=== PATIENT | female | born 1935 | race Caucasian/White ===

== ENCOUNTER → 2018-11-28 | Outpatient (CLI) | payer MEDICARE ==
[~2018-11-28] MED LIST: ASPI325; ASPI81CH PO; ATEN25; FLUSAL5005; Hydrochlorothia25 MG PO; LEVSOD100; LISI20 PO; METF500C PO; METO100ER PO; Prilosec Otc20 MG; RANI150
== END | disposition home or self-care (01) ==
LOC: LAB EV 12:36 → LAB SHORT 12:36
DX: N39.0 Urinary tract infection, site not specified (principal)
CPT/HCPCS: 87077; 87086; 87186

== ENCOUNTER 2019-07-24 08:45 | Day surgery (SDC) | payer MEDICARE ==
[~2019-07-24] VITALS: Ht 165.1 cm; Wt 68.0 kg
[~2019-07-24 08:45] MED LIST changes: +AMLO5 PO; +Aspirin325 MG PO; +B Complex-Foli1 EACH PO; +Daily Multiple1 EACH PO; +Dyazide 37.5-21 EACH PO; +LEVSOD100 PO; +Lipitor20 MG PO; +MONT10T PO; +OMEGA 3-6-9 11200 MG PO; +OMEPRAZOLE20 MG PO; +VITAMIN D-32000 UNIT PO; +Zestril40 MG PO
--- NOTE | 2019-07-24 09:22 | NUR ---
07/24/19 0922 JOE APODACA 1 IV MISS IN RH BY NORMA DEVINE 1 GOOD IVIN RAC BY RN PT TOW
--- NOTE | 2019-07-24 09:37 | NUR ---
07/24/[address] IN ROOM TO OVERSEE ALL MEDICATION ADMINISTRATION.
== END 2019-07-24 10:16 | disposition home or self-care (01) ==
LOC: ORSCSDS 08:45
PROVIDERS: Internal Medicine Gastroenterology
PROC: 0DBH8ZX Excision of Cecum, Via Natural or Artificial Opening Endoscopic, Diagnostic (ICD-10-PCS; principal; 2019-07-24 09:45)
PROC: 0DBE8ZX Excision of Large Intestine, Via Natural or Artificial Opening Endoscopic, Diagnostic (ICD-10-PCS; principal; 2019-07-24 09:45)
DX: R19.4 Change in bowel habit (principal); D12.0 Benign neoplasm of cecum; K57.30 Diverticulosis of large intestine without perforation or abscess without bleeding; K64.8 Other hemorrhoids; I10 Essential (primary) hypertension; Z80.0 Family history of malignant neoplasm of digestive organs; E11.9 Type 2 diabetes mellitus without complications; G47.33 Obstructive sleep apnea (adult) (pediatric); J45.909 Unspecified asthma, uncomplicated; E07.9 Disorder of thyroid, unspecified; Z79.82 Long term (current) use of aspirin; Z79.899 Other long term (current) drug therapy
CPT/HCPCS: 82947; 88305; J2704; J7120

== ENCOUNTER → 2020-05-13 | Outpatient (CLI) | payer MEDICARE | END | disposition home or self-care (01) | LOC: LAB 15:22 → LAB SHORT 15:22 | DX: R30.9 Painful micturition, unspecified (principal) | CPT/HCPCS: 87077; 87086; 87186 ==

== ENCOUNTER → 2020-05-20 | Outpatient (CLI) | payer MEDICARE ==
[2020-05-22 16:11] LABS: HPV 16 Negative (Negative); HPV 18 Negative (Negative); HPV OTHER HR TYPES Negative (Negative)
== END | disposition home or self-care (01) ==
LOC: LAB SHORT 19:58 → LAB 19:58
PROVIDERS: Obstetrics & Gynecology
DX: Z01.419 Encounter for gynecological examination (general) (routine) without abnormal findings (principal)
CPT/HCPCS: 87624; G0123

== ENCOUNTER 2022-01-27 06:43 | Day surgery (SDC) | payer MEDICARE ==
[~2022-01-27] VITALS: Ht 160 cm; Wt 67.6 kg
[~2022-01-27 06:43] MED LIST changes: +ALBU90OI INH; +EUTHYROX88 MCG PO; +HYDCHL12.5 PO; +METF500 PO
[2022-01-27] MEDS ORDERED: OMEP20ER (07:21)
--- NOTE | 2022-01-27 09:08 | NUR ---
01/27/22 0908 Eboni Pham UPON LOADING PT INTO VEHICLE PT VOMITED CLEAR FLUID, PREVIOUSLY DRANK WATER IN STEP DOWN. PT BELIEVES IT WAS FROM MOVING TOO FAST. ENCOURAGED PT TO DRINK SMALL SIPS OF WATER WHEN HOME, HAVE SOME SALTINE CRACKERS AND HAVE A RESTFULL DAY. NO QUESTIONS OR CONCERNS FROM THE PT. SHE FELT WELL ENOUGH TO GO HOME.
== END 2022-01-27 08:52 | disposition home or self-care (01) ==
LOC: ORSCSDS 06:43
PROVIDERS: Ophthalmology
PROC: 08RJ3JZ Replacement of Right Lens with Synthetic Substitute, Percutaneous Approach (ICD-10-PCS; principal; 2022-01-27 08:00)
DX: H25.13 Age-related nuclear cataract, bilateral (principal); J44.9 Chronic obstructive pulmonary disease, unspecified; E03.9 Hypothyroidism, unspecified; E11.36 Type 2 diabetes mellitus with diabetic cataract; H26.9 Unspecified cataract; I10 Essential (primary) hypertension; Z79.84 Long term (current) use of oral hypoglycemic drugs; Z95.0 Presence of cardiac pacemaker; Z79.899 Other long term (current) drug therapy
CPT/HCPCS: 82947; J2001; J2250; J3010; J3301; J7040; V2632

== ENCOUNTER 2022-02-17 08:21 | Day surgery (SDC) | payer MEDICARE ==
[~2022-02-17] VITALS: Ht 160 cm; Wt 70.1 kg
[~2022-02-17 08:21] MED LIST changes: +OMEP20ER
== END 2022-02-17 10:47 | disposition home or self-care (01) ==
LOC: ORSCSDS 08:21
PROVIDERS: Ophthalmology
PROC: 08RK3JZ Replacement of Left Lens with Synthetic Substitute, Percutaneous Approach (ICD-10-PCS; principal; 2022-02-17 09:45)
DX: H25.12 Age-related nuclear cataract, left eye (principal); I25.2 Old myocardial infarction; I25.10 Atherosclerotic heart disease of native coronary artery without angina pectoris; J44.9 Chronic obstructive pulmonary disease, unspecified; G47.33 Obstructive sleep apnea (adult) (pediatric); Z87.891 Personal history of nicotine dependence; E11.9 Type 2 diabetes mellitus without complications; Z79.82 Long term (current) use of aspirin; Z79.84 Long term (current) use of oral hypoglycemic drugs; Z79.899 Other long term (current) drug therapy
CPT/HCPCS: 82947; J1100; J2001; J2250; J2405; J3010; J3301; J7040; V2632

== ENCOUNTER 2022-04-10 08:05 | Emergency (ER) | payer MEDICARE ==
[~2022-04-10] VITALS: Ht 175.3 cm; Wt 70.3 kg
[2022-04-10] MEDS ORDERED: Norco 5-325 Ta1 EACH PO (09:03)
== END 2022-04-10 09:42 | disposition home or self-care (01) ==
LOC: ER 08:05
DX: S52.591A Other fractures of lower end of right radius, initial encounter for closed fracture (principal); S20.211A Contusion of right front wall of thorax, initial encounter; E11.9 Type 2 diabetes mellitus without complications; E03.9 Hypothyroidism, unspecified; I10 Essential (primary) hypertension; J44.9 Chronic obstructive pulmonary disease, unspecified; W18.09XA Striking against other object with subsequent fall, initial encounter; Z88.2 Allergy status to sulfonamides; Z88.1 Allergy status to other antibiotic agents; Z88.8 Allergy status to other drugs, medicaments and biological substances; Z79.82 Long term (current) use of aspirin; Z79.899 Other long term (current) drug therapy; Z87.891 Personal history of nicotine dependence
CPT/HCPCS: 71101; 73110; A9270

== ENCOUNTER → 2024-11-28 | Outpatient (CLI) | payer OTHER ==
[~2024-11-28] MED LIST changes: +Aspir 8181 MG PO; +Norco 5-325 Ta1 EACH PO
== END | disposition home or self-care (01) ==
LOC: LAB 15:41 → LAB SHORT 15:41
DX: M79.675 Pain in left toe(s) (principal)
CPT/HCPCS: 84550

== ENCOUNTER → 2025-01-21 | Outpatient (CLI) | payer OTHER ==
[2025-01-21 14:17] LABS: Creatinine, Urine Random 48.9 mg/dL (27.00-270.00); Microalb/Creat Ratio UR, Rand 21.268 mg/g (0.000-30.000); Microalbumin, Random Urine 10.4 mg/L (0.000-20.000)
== END ==
LOC: LAB 12:10 → LAB SHORT 12:10
PROVIDERS: Internal Medicine
DX: E11.42 Type 2 diabetes mellitus with diabetic polyneuropathy (principal)
CPT/HCPCS: 82043; 82570